=== PATIENT | male | born 1985 | race Caucasian/White ===

== ENCOUNTER 2018-04-14 02:57 | Emergency (ER) | payer OTHER ==
[~2018-04-14] VITALS: Ht 180.3 cm; Wt 82.7 kg
[2018-04-14 03:03] VITALS: BP 122/75; TEMP 97.7
[2018-04-14 03:47] LABS: BASO % 0.6 % (0.0-2.0); EOS # 0.1 (0.0-0.7); EOS % 1.7 % (0-4.0); GRAN % 55.2 % (42.2-75.2); HEMATOCRIT 43.2 % (42.0-52.0); HEMOGLOBIN 15.9 g/dl (13.5-18.0); LYMPH # 1.8 (1.2-3.4); LYMPH % 33.6 % (20.0-51.0); MEAN CELL VOLUME 87 fl (80.0-100.0); MEAN CORPUSCULAR HEMOGLOBIN 32 pg (27.0-31.0); MEAN CORPUSCULAR HGB CONC 37 g/dl (33.0-37.0); MEAN PLATELET VOLUME 9.8 fl (7.4-10.4); MONO # 0.5 (0.1-0.6); MONO % 8.7 % (1.7-9.3); PLATELET COUNT 131 K/mm3 (130-400); RED BLOOD COUNT 4.99 M/mm3 (4.20-5.60); REDCELL DISTRIBUTION WIDTH-CV 12.1 % (11.5-14.5)
[2018-04-14] MEDS ORDERED: ZOLOFT 100MG100 MG PO (03:51)
[2018-04-14] MEDS ORDERED: WELLBUTRIN XL300 M1 PO (03:52)
[2018-04-14 04:12] LABS: ALANINE AMINOTRANSFERASE 36 U/L (21-72); ALKALINE PHOSPHATASE 40 U/L (50-136); ANION GAP 8 mmol/L (7-16); AST,SGOT 22 U/L (15-37); BILIRUBIN,TOTAL 0.9 mg/dL (0.0-1.0); BLOOD UREA NITROGEN 14 mg/dL (9-20); C-REACTIVE PROTEIN < 0.5 mg/dL (0.0-0.9); CALCIUM 9.4 mg/dL (8.4-10.2); CARBON DIOXIDE 29 mmol/L (22-30); CHLORIDE 100 mmol/L (98-107); CREATININE, serum 0.92 mg/dL (0.66-1.25); GLUCOSE 97 mg/dL (74-106); LIPASE 122 U/L (23-300); POTASSIUM 3.8 mmol/L (3.4-5.0); SODIUM 136 mmol/L (137-145); TOTAL PROTEIN 6.8 gm/dL (6.4-8.2)
[2018-04-14] MEDS ORDERED: PROTONIX 40MG T40 MG PO (04:56)
[2018-04-14] MEDS ORDERED: CARAFATE 1GM1 G PO (04:56)
[2018-04-14 05:27] VITALS: PULSE 63
== END 2018-04-14 05:27 | disposition home or self-care (01) ==
LOC: COL.ER 02:57
PROVIDERS: Emergency Medicine
DX: K29.70 Gastritis, unspecified, without bleeding (principal); Z90.89 Acquired absence of other organs
CPT/HCPCS: C9113; J1885; J2405; J3010; J7030